=== PATIENT | male | born 1990 | race Caucasian/White ===

== ENCOUNTER 2019-07-03 15:33 | Emergency (ER) | payer SELFPAY ==
[2019-07-03 15:34] VITALS: BP 171/110; PULSE 120; RESP 17; TEMP 37.2; O2SAT 96; BMI 33.3
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
[2019-07-03] MEDS: oxyCODONE 5 MG Tablet PO (15:53)
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
[2019-07-03 17:34] VITALS: PULSE 104; RESP 16; O2SAT 98
== END 2019-07-03 17:35 | disposition home or self-care (01) ==
PROVIDERS: Emergency Provider Emergency Medicine
DX: S52.301A Unspecified fracture of shaft of right radius, initial encounter for closed fracture (principal); V29.9XXA Motorcycle rider (driver) (passenger) injured in unspecified traffic accident, initial encounter
CPT/HCPCS: 29125; 73090; 99283

== ENCOUNTER 2019-07-06 05:57 | Day surgery (SDC) | payer SELFPAY ==
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
[2019-07-06] VITALS (8 sets, daily range): BP systolic 100–139; BP diastolic 61–95; PULSE 77–83; RESP 16–21; TEMP 36.6–37.2; O2SAT 93–97; BMI 32.8
[2019-07-06] MEDS: Lactated Ringers 1,000 ML 100 ML IV ×2 (06:49→10:55)
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
[2019-07-06] MEDS: Cefazolin 2 GM in 0.9% Normal Saline 100 ML IV (07:44)
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
== END 2019-07-06 12:31 | disposition home or self-care (01) ==
LOC: SDC 05:59 → AC 06:00
PROVIDERS: Referring Provider Orthopaedic Surgery; Visit Provider Orthopaedic Surgery
PROC: (CPT 25575; principal; 2019-07-06 07:15)
DX: S52.301A Unspecified fracture of shaft of right radius, initial encounter for closed fracture (principal); S52.201A Unspecified fracture of shaft of right ulna, initial encounter for closed fracture; V29.60XA Unspecified motorcycle rider injured in collision with unspecified motor vehicles in traffic accident, initial encounter; Y93.89 Activity, other specified; Y92.9 Unspecified place or not applicable; S00.81XA Abrasion of other part of head, initial encounter; R20.2 Paresthesia of skin
CPT/HCPCS: 25575; 64418; 73090; 76000; C1713; J7120; J2405

== ENCOUNTER 2019-07-06 19:53 | Observation (INO) | payer SELFPAY ==
[2019-07-06] VITALS (11 sets, daily range): BP systolic 125–159; BP diastolic 77–113; PULSE 84–110; RESP 16–28; TEMP 36.8–38; O2SAT 92–99; BMI 32.8; BMI 34.6; BMI 34.7
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
[2019-07-06] MEDS: HYDROmorphone 1 MG/ML Syringe IV (20:09)
[2019-07-06] MEDS: Cefazolin 2 GM in 0.9% Normal Saline 100 ML IV (20:58)
--- NOTE | 2019-07-06 22:29 | PRO.PCM_ITS ---
Procedure Report Date of Procedure: 07/06/19 Preoperative diagnosis compartment syndrome right forearm Postoperative diagnosis: Same Procedure: Right forearm fasciotomy Surgeon: Dr. Reginald Oviedo Rheostat Assembler: None Anesthesia: General Anesthesiologist: Dr. Alvarenga Patient medications: Ancef Complications: None EBL: 100 Indications for surgery patient is a 29-year-old male recent forearm fracture. He underwent open reduction internal fixation of his right both bone forearm fracture starting at 730 this a.m. Some soft tissue swelling was noted at the time of closure. Wounds were completely close normally with ashley without undue tension on skin edges. No tenseness of the compartments at that point. This evening patient developed increasing pain at the forearm not relieved with elevation and release of the bandage. He came to the emergency room in severe pain 10 out of 10. Pain not relieved with narcotics. Pain with passive motion of the fingers. Normal capillary refill. Two-point discrimination between 6 and 7 mm at the thumb index and middle finger. 5 to 6 mm at the small and ring finger. Pulses difficult to palpate because of soft tissue swelling. Tense compartments noted on exam. Compartment pressures could not be measured due to lack of appropriate device in the emergency room/hospital. Patient was e xplained his diagnosis and treatment options. He did wish to proceed with surgery. He understood this would most likely require delayed wound closure and skin grafting. Risk of surgery including but not limited to from operative or postoperative complications. Risk of anesthetic complications such as heart attacks, strokes, seizures, or . Risk of infections. Risk of damage to nerves arteries tendons. Risk of inadvertent fractures or dislocations. Risk of bone or wound healing complications. Possibility of nonunion malunion pain stiffness weakness. Possible need for further surgery such as hardware removal. Risk of DVT PE and other potential complications could lead to or disability explained. No guarantees were stated or implied. All of their questions were answered. Appropriate informed consent was obtained and signed for surgical intervention. Findings: Patient had complete release of the volar and dorsal deep and superficial compartments well as mobile wad. Median nerve completely released with carpal tunnel release. Skin was closed over the carpal tunnel site without undue tension covering the median nerve. Appropriate nonstick bandages applied over the open wounds as well as Kerlix soaked in Betadine, Kerlix, loose AP splints. Details of procedure: Patient was taken the OR given a general anesthetic by Dr. Alvarenga. Was removed from the volar forearm wound. Ashley remained in place at the ulnar forearm wound. Was prepped padded draped in usual orthopedic sterile fashion for the procedure. We extended the volar incision proximally to the elbow crease. We extended it distally across the wrist crease into the carpal canal. Tunnel release was done under standard technique releasing the covering over the median nerve. The artery was carefully protected throughout the procedure. We easily dissected back into the previous surgical site where the plate had been placed today. Mobile wad was released as well. Muscle had good color. Good contractility with the Bovie., Normal appearance overall. Superficial and deep volar compartments fully released with fascia release. Dorsal incision was made midway between the volar incision and the ulnar incision previously made this morning and left intact incision was carried through skin subcutaneous tissue down onto the dorsal extensor compartment. Scissors were used to fully release the dorsal compartment superficially and deep. Again muscle had normal color and contractility. His wounds were thoroughly irrigated. Bleeding easily controlled with the Bovie. Mepitel was placed over the exposed volar and dorsal musculature. Dorsally I did place skin ashley and a vessel loop in a crossing fashion to possibly aid with later closure. Kerlix soaked in Betadine, followed by clean Curlex followed by AP splints applied loosely. Dr. Jose is aware of the patient. He and/or the wound care nurse will evaluate the patient tomorrow and most likely apply a wound VAC and he will take over wound management and wound closure in a timely fashion. This note was generated with [employer] dictation software. It may contain incorrect words, spelling, and punctuation that were not noted in checking the note before signing.
[2019-07-06] MEDS: Lactated Ringers 1,000 ML 125 ML IV (22:36)
[2019-07-07] VITALS (7 sets, daily range): BP systolic 126–151; BP diastolic 60–97; PULSE 87–109; RESP 16–18; TEMP 36.7–37.3; O2SAT 93–96
[2019-07-07] MEDS: Cefazolin 1 GM/50 ML BAG IV ×3 (00:43→11:38)
[2019-07-07] MEDS: Morphine 2 MG/ML Syringe 3 MG IV ×4 (00:55→23:44)
[2019-07-07] MEDS: 0.9% Saline Lock 10 ML Syringe IV ×3 (00:56→11:36)
[2019-07-07] MEDS: Acetaminophen 500 MG Tablet 1000 MG PO ×3 (06:22→20:48)
[2019-07-07] MEDS: oxyCODONE 5 MG Tablet 10 MG PO ×4 (08:31→21:46)
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
--- NOTE | 2019-07-07 12:56 | NURSING ---
wound photo: right arm
--- NOTE | 2019-07-07 12:58 | NURSING ---
wound photo: right arm (medial view)
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
[2019-07-07] MEDS: diazePAM 5 MG Tablet PO ×2 (18:49→23:46)
--- NOTE | 2019-07-07 19:31 | NURSING ---
pt home meds counted and locked in med room.
[2019-07-08 02:01] VITALS: BP 146/93; PULSE 90; RESP 18; TEMP 37; O2SAT 93
[2019-07-08] MEDS: oxyCODONE 5 MG Tablet 10 MG PO ×4 (02:06→14:28)
[2019-07-08] MEDS: Acetaminophen 500 MG Tablet 1000 MG PO ×2 (05:43→14:28)
[2019-07-08] MEDS: diazePAM 5 MG Tablet PO ×3 (05:43→14:28)
--- NOTE | 2019-07-08 08:36 | NURSING ---
Minimal drainage noted in the canister. awaiting approval for home VAC. possible discharge later today if approved and home health can be set up.
[2019-07-08 08:40] VITALS: BP 138/97; PULSE 87; RESP 18; TEMP 37.2; O2SAT 94
--- NOTE | 2019-07-08 10:29 | CASEMGMT ---
This RN CM to room to discuss C for wound vac changes with pt at this time. Pt states that he would like [facility] at discharge for SN. Wound vac will need changed MWF. Pt states that he will staying with his mom for now in [place]. Message left with Rosario at [facility] to call this RN KENDRA back in regards to pt's self-pay/[employer] insurance. Order placed for [facility] SN at this time. Dinesh SANCHEZ CM
--- NOTE | 2019-07-08 11:40 | DCINST_ITS ---
Discharge Diet: Light diet - advance as tolerated Discharge Activity: May not drive while taking narcotic pain medications., - - Leave dressing on till see in the office. Do not get dressing wet. Cover to shower. Ice area for (Minutes): 20 - Ice area for 20 minutes each hour while awake Keep extremity elevated above heart level: Operative Extremity, Right Arm Call your doctor if your incision/area has: Continuous Slow Oozing, Sudden Increased Bleeding, Increased Pain/ Swelling, Increased Redness, Foul Smelling Discharge Call your doctor if you observe: Fever of 101 or Higher, Coldness, Increased Pain, Numbness or Tingling, Change in Color Cleanse incision/area with: Do not get Incision Wet, Keep Dressing Clean & Dry Allergies/Adverse Reactions: Allergies No Known Allergies Allergy (Verified 07/06/19 19:58) Medications to take at Discharge Acetaminophen [Tylenol] 1 - 2 tab PO Q4H PRN PRN 07/06/19 Oxycodone HCl/Acetaminophen [Percocet 5-325 mg Tablet] 1 - 2 tab PO Q6H PRN PRN 07/06/19 Diazepam [Valium] 5 mg PO 4X/DAY PRN PRN #30 tab 07/08/19 The following prescriptions were given: Diazepam [Valium] 5 mg PO 4X/DAY PRN PRN #30 tab PRN Reason: Spasms Transmission Status: Received by [facility] Test Results: Test results from this visit will be discussed in further detail at your follow- up appointment, if applicable. Please Follow Up With: Ubaldo Jose MD When: 07/19/2019 at 8:00 am at [facility] to fill out paperwork Please Follow Up With: Angelica Singer When: 07/16/2019 at 10:00 am Proposed Discharge Date: 07/08/19
--- NOTE | 2019-07-08 12:04 | PCM.DC.SUM ---
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 Routine Comment: Reason for Consult:: wound VAC placement Summary of Care Provided: The patient is a 29 year old M [] Patient Problems: Active and Suspected Problems Postoperative pain (Acute) - Physical Exam Vitals/I&O's: Vital Signs Temp Pulse Resp BP Pulse Ox 98.9 F 87 18 138/97 H 94 07/08/19 08:40 07/08/19 08:40 07/08/19 08:40 07/08/19 08:40 07/08/19 08:40 Oxygen Flow Rate (L/min) 2 Oxygen Delivery Method Room Air Weight: 100.2 kg Body Mass Index (BMI) 34.7 Intake and Output for Last 24 Hours 07/06/19 07/07/19 07/08/19 23:59 23:59 23:59 Intake Total 120 / 120 3350.00 / 3350.00 600 / 600 Balance 120 / 120 3350.00 / 3350.00 600 / 600 Current Medications Acetaminophen (Tylenol) 1,000 mg PO Q8 [facility] Last Admin: 07/08/19 05:43 Dose: 1,000 mg Documented by: Diazepam (Valium) 5 mg PO Q4H PRN PRN PRN Reason: SPASMS Last Admin: 07/08/19 10:23 Dose: 5 mg Documented by: Sodium Chloride () 250 mls @ 15 mls/hr IV .[id number] PRN PRN Reason: Saline Flush Sodium Chloride () 250 mls @ 15 mls/hr IV .[id number] PRN PRN Reason: Additional IVPB Infusion Morphine Sulfate () 3 mg IV Q3H PRN PRN PRN Reason: Pain Score 6-10/10 Last Admin: 07/07/19 23:44 Dose: 3 mg Documented by: Ondansetron HCl (Zofran) 4 mg IV Q8H PRN PRN PRN Reason: Nausea Oxycodone HCl (Oxyir) 10 mg PO Q4H PRN PRN PRN Reason: Pain Score 6-10/10 Last Admin: 07/08/19 10:22 Dose: 10 mg Documented by: Sodium Chloride () 10 - 40 ml IV UD PRN PRN Reason: SALINE FLUSH Last Admin: 07/07/19 11:36 Dose: 10 ml Documented by: Discharge Diet: Light diet - advance as tolerated Discharge Activity: May not drive while taking narcotic pain medications., - - Leave dressing on till see in the office. Do not get dressing wet. Cover to shower. May shower in (days): 1 Ice area for (Minutes): 20 - Ice area for 20 minutes each hour while awake Keep extremity elevated above heart level: Operative Extremity, Right Arm Call your doctor if your incision/area has: Continuous Slow Oozing, Sudden Increased Bleeding, Increased Pain/ Swelling, Increased Redness, Foul Smelling Discharge Call your doctor if you observe: Fever of 101 or Higher, Coldness, Increased Pain, Numbness or Tingling, Change in Color Cleanse incision/area with: Do not get Incision Wet, Keep Dressing Clean & Dry Home Medications: Medications to take at Discharge Diazepam [Valium] 5 mg PO 4X/DAY PRN PRN #30 tab 07/08/19 Following Prescrptions Were Given to Patient: Diazepam [Valium] 5 mg PO 4X/DAY PRN PRN #30 tab PRN Reason: Spasms Transmission Status: Re[facility] by [facility] Primary Care Physician: Care Physician,No Primary [Primary Care Provider] - Please Follow Up With: Ubaldo Jose MD When: 07/19/2019 at 8:00 am at [facility] to fill out paperwork Please Follow Up With: Angelica Singer When: 07/16/2019 at 10:00 am Medical Necessity - Tobacco Use Smoking Status: Never smoker
[2019-07-08] MEDS: 0.9% Saline Lock 10 ML Syringe IV (12:34)
[2019-07-08] MEDS: Morphine 2 MG/ML Syringe 3 MG IV (12:34)
--- NOTE | 2019-07-08 13:08 | NURSING ---
Pt switched over to the home VAC. reviewed alarms, etc. with patient. proof of delivery form signed per patient and faxed to [facility]. copy given to patient as well. denies further needs at this time.
--- NOTE | 2019-07-08 13:09 | NURSING ---
talked with Rosario from [facility] and gave insurance information that patient had given to this nurse. Pt has [facility] insurance. Policy #[id number]. phone # .
[2019-07-08 14:31] VITALS: BP 139/103; PULSE 87; RESP 18; TEMP 37.1; O2SAT 95
== END 2019-07-08 11:53 | disposition home health service (06) ==
LOC: ED 20:17 → SDC 20:18 → AC 20:19 → SDC 20:26 → PCU 22:35
PROVIDERS: Admitting Provider Orthopaedic Surgery; Emergency Provider Emergency Medicine; Visit Provider Orthopaedic Surgery
PROC: (CPT 25020; principal; 2019-07-06 21:00)
DX: M79.A11 Nontraumatic compartment syndrome of right upper extremity (principal); S52.91XA Unspecified fracture of right forearm, initial encounter for closed fracture; V29.9XXA Motorcycle rider (driver) (passenger) injured in unspecified traffic accident, initial encounter; S52.201A Unspecified fracture of shaft of right ulna, initial encounter for closed fracture; Y93.9 Activity, unspecified; Y92.9 Unspecified place or not applicable
CPT/HCPCS: 25020; 96361; 96365; 96366; 96375; 96376; 97802; 99218; 99251; 99285; J7030; J7120; A4216; G0378; G0463; J2405

== ENCOUNTER 2019-07-19 08:00 | Outpatient (RCR) | payer SELFPAY ==
[2019-07-06 23:33] VITALS: BMI 34.7
[2019-07-19 08:28] VITALS: BP 145/106; PULSE 89; RESP 18; TEMP 36.6; O2SAT 98
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
== END 2019-07-29 23:59 ==
LOC: WC 08:00
PROVIDERS: Visit Provider Surgery
DX: M79.A11 Nontraumatic compartment syndrome of right upper extremity (principal); V29.9XXA Motorcycle rider (driver) (passenger) injured in unspecified traffic accident, initial encounter; S52.91XS Unspecified fracture of right forearm, sequela; S52.201S Unspecified fracture of shaft of right ulna, sequela; Z98.890 Other specified postprocedural states
CPT/HCPCS: 11043; 11046; 97606

== ENCOUNTER 2019-08-16 08:00 | Outpatient (RCR) | payer SELFPAY ==
[2019-07-06 23:33] VITALS: BMI 34.7
[2019-07-30 00:21] VITALS: BP 145/106; PULSE 89; RESP 18; TEMP 36.6; O2SAT 98
[2019-08-02 08:28] VITALS: BP 142/97; PULSE 90; RESP 16; TEMP 37.2; BMI 34.7
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
[2019-08-16 07:59] VITALS: BP 157/106; PULSE 89; RESP 16; TEMP 37.2; BMI 34.7
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
== END 2019-08-29 23:59 ==
LOC: WC 08:00
PROVIDERS: Visit Provider Surgery
DX: S52.91XA Unspecified fracture of right forearm, initial encounter for closed fracture (principal); S52.201A Unspecified fracture of shaft of right ulna, initial encounter for closed fracture; V29.9XXA Motorcycle rider (driver) (passenger) injured in unspecified traffic accident, initial encounter; Z98.890 Other specified postprocedural states; T79.A11A Traumatic compartment syndrome of right upper extremity, initial encounter; G89.18 Other acute postprocedural pain; R60.0 Localized edema; L98.492 Non-pressure chronic ulcer of skin of other sites with fat layer exposed
CPT/HCPCS: 11042; 11045; 97606

== ENCOUNTER 2019-09-27 08:00 | Outpatient (RCR) | payer SELFPAY ==
[2019-08-30 00:30] VITALS: BP 157/106; PULSE 89; RESP 16; TEMP 37.2; O2SAT 98
[2019-08-30 08:00] VITALS: BP 156/103; PULSE 87; RESP 16; TEMP 37.3; BMI 34.7
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
[2019-09-13 08:17] VITALS: BP 148/98; PULSE 82; RESP 16; TEMP 36.7; BMI 34.7
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
[2019-09-27 08:08] VITALS: BP 144/97; PULSE 83; RESP 16; TEMP 36.7; BMI 34.7
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
== END 2019-09-28 23:59 ==
LOC: WC 08:00
PROVIDERS: Visit Provider Surgery
DX: L98.492 Non-pressure chronic ulcer of skin of other sites with fat layer exposed (principal); Z98.890 Other specified postprocedural states; G89.18 Other acute postprocedural pain; R60.0 Localized edema; S52.201S Unspecified fracture of shaft of right ulna, sequela; S52.91XS Unspecified fracture of right forearm, sequela; V29.40 Motorcycle driver injured in collision with unspecified motor vehicles in traffic accident; T79.A1 Traumatic compartment syndrome of upper extremity
CPT/HCPCS: 11042; 11045

== ENCOUNTER 2019-10-25 08:00 | Outpatient (RCR) | payer SELFPAY ==
[2019-09-29 00:28] VITALS: BP 144/97; PULSE 83; RESP 16; TEMP 36.7; O2SAT 98
[2019-10-11 08:18] VITALS: BP 149/111; PULSE 83; RESP 16; TEMP 36.8; BMI 34.7
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
[2019-10-25 08:13] VITALS: BP 149/90; PULSE 69; RESP 18; TEMP 36.8; BMI 34.7
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
== END 2019-10-29 23:59 ==
LOC: WC 08:00
PROVIDERS: Visit Provider Surgery
DX: L98.495 Non-pressure chronic ulcer of skin of other sites with muscle involvement without evidence of necrosis (principal); Z98.890 Other specified postprocedural states; T79.A1 Traumatic compartment syndrome of upper extremity; S52.201S Unspecified fracture of shaft of right ulna, sequela; S52.91XS Unspecified fracture of right forearm, sequela; V29.40 Motorcycle driver injured in collision with unspecified motor vehicles in traffic accident
CPT/HCPCS: 11042; 99212; G0463

== ENCOUNTER → 2019-12-01 15:54 | Outpatient (CLI) | payer SELFPAY ==
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
== END ==
PROVIDERS: Referring Provider Orthopaedic Surgery Hand Surgery; Visit Provider Orthopaedic Surgery Hand Surgery
DX: T84.84XA Pain due to internal orthopedic prosthetic devices, implants and grafts, initial encounter (principal); T85.79XA Infection and inflammatory reaction due to other internal prosthetic devices, implants and grafts, initial encounter
CPT/HCPCS: 73200; 76377